=== PATIENT | female | born 1970 | race Caucasian/White ===

== ENCOUNTER 2018-09-29 00:32 | Emergency (ER) | payer OTHER ==
[~2018-09-29] VITALS: Ht 157.5 cm; Wt 49.9 kg
[2018-09-29 00:32] VITALS: BP 127/77
[2018-09-29] MEDS ORDERED: TORADOL IM STA (00:36)
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
[2018-09-29] MEDS ORDERED: TORADOL ONE (01:31)
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
--- NOTE | 2018-09-29 02:50 | NUR ---
Boot Small short boot was applied to right foot
--- NOTE | 2018-09-29 03:34 | NUR ---
[place] Talked to Officer Donta at [facility] about transport of patient due to patient being in custody when EMS arrived for transport. Officer Donta states she was not in custody they just had her detained for questioning to see where patient needs to go. That we will have to call next of kin to see if someone can come and pick patient up. Officer Donta states that patient lives at [address] here in [facility]
--- NOTE | 2018-09-29 03:37 | NUR ---
Next of Kin Left message with Claire, patients next of kin
[2018-09-29 04:37] VITALS: BP 127/77
== END 2018-09-29 03:10 | disposition home or self-care (01) ==
LOC: EDBD 00:32 → ER 00:32
DX: S82.51XA Displaced fracture of medial malleolus of right tibia, initial encounter for closed fracture (principal); S10.93XA Contusion of unspecified part of neck, initial encounter; V89.2XXA Person injured in unspecified motor-vehicle accident, traffic, initial encounter; Y93.89 Activity, other specified; Y92.488 Other paved roadways as the place of occurrence of the external cause; Y99.8 Other external cause status
CPT/HCPCS: 70450; 72125; 72128; 72131; 73610; 96372; 99284; J1885

== ENCOUNTER 2018-10-03 19:34 | Emergency (ER) | payer OTHER ==
[~2018-10-03] VITALS: Ht 167.6 cm; Wt 49.9 kg
[2018-10-03 19:37] VITALS: BP 149/96
--- NOTE | 2018-10-03 20:08 | ER.PDOC ---
General Chief Complaint: Extremities Stated Complaint: FOOT PAIN Time seen by MD: 19:59 Source: patient Exam Limitations: no limitations History of Present Illness Initial Comments 47 year old white female with history of bipolar disorder, schizophrenia, homelessness, off psych medication was initially brought in by EMS because of right ankle pain. She was seen and evaluated two days ago and was discharged on a walking boot. Patient requests admission to the [facility] for decompensating mental health. Denies homicidal nor suicidal ideation. Last meth use was yesterday. Timing/Duration: other (ongoing) Severity: moderate Associated Symptoms: Depressed Prior symptoms/Treatment: Similar symptoms previous Allergies: Coded Allergies: No Known Allergies (Unverified , 09/29/18) Past Medical History Medical History: arrhythmia, hypertension Surgical History: appendectomy LMP (females 10-50): postmenopause Social History Smoking: less than 1 pack/day Alcohol Use: none Drug Use: marijuana, Meth Review of Systems Constitutional: weakness EENTM: no symptoms reported Respiratory: no symptoms reported Cardiovascular: no symptoms reported Gastrointestinal: no symptoms reported Genitourinary: no symptoms reported Musculoskeletal: joint pain Skin: no symptoms reported Psychiatric/Neurological: see HPI Physical Exam General Appearance: No acute distress, Alert EENT: No nystagmus, PERRLA, EOM's intact, NML ENT inspection, Pharynx nml, NML gag reflex, Dry mucosa Neck: Non-Tender, Full Range of Motion, Supple, Normal Inspection Respiratory: chest non-tender, lungs clear, normal breath sounds, no respiratory distress, no accessory muscle use Gastrointestinal: Normal Bowel Sounds, No Organomegaly, No Pulsatile Mass, Non Tender, Soft Extremities: Edema (right ankle), Tenderness Neurological/Psychiatric: Alert, 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, Oriented x 3, Anxious, Depressed Affect Appearance/Memory/Insight: Disheveled Behavior/Eye Contact/Speech: Cooperative, Good Eye Contact, Normal Speech Thoughts/Hallucinations: Normal Thought Pattern, No Apparent Hallucination Skin: Normal Color, Warm/Dry Results/Orders Results/Orders Laboratory Tests Test 10/03/18 20:08 10/03/18 20:23 Urine Collection Type CCMS Urine Color STRAW (YELLOW) Urine Appearance CLEAR (CLEAR) Urine Bilirubin NEGATIVE MG/DL (NEGATIVE) Urine Ketones NEGATIVE (NEGATIVE) Urine Specific [place] 1.020 (1.005-1.035) Urine pH 6 (5.0-6.0) Urine Protein NEGATIVE (NEGATIVE) Urine Urobilinogen NORMAL (NEGATIVE) Urine Nitrate NEGATIVE (NEGATIVE) Urine Leukocyte Esterase NEGATIVE (NEGATIVE) Urine Blood NEGATIVE (NEGATIVE) Urine Glucose NORMAL (NEGATIVE) Urine Opiates, Qualitative NEGATIVE ng/mL (CUT-OFF:300) Urine Methadone, Qualitative NEGATIVE ng/mL (CUT-OFF:300) Urine Amphetamine Qualitative POSITIVE ng/mL (CUTOFF:1000) Urine Barbiturates, Qualitative NEGATIVE ng/mL (CUT-OFF:200) Urine Phencyclidine Screen NEGATIVE ng/mL (CUT-OFF:25) Urine MDMA (Ecstasy), Qualitative POSITIVE ng/mL (CUT-OFF:300) Urine Benzodiazepines Screen NEGATIVE ng/mL (CUT-OFF:200) Urine Cocaine Qualitative POSITIVE ng/mL (CUT-OFF:300) Ur Tetrahydrocannabinol (THC) Scrn NEGATIVE ng/mL (CUT-OFF:50) White Blood Count 4.3 10^3/uL (4.5-11.0) Red Blood Count 4.00 10^6/uL (4.00-5.20) Hemoglobin 12.1 g/dL (12.0-15.0) Hematocrit 37.6 % (36.0-46.0) Mean Corpuscular Volume 94.0 fL (78-100) Mean Corpuscular Hemoglobin 30.3 pg (26-34) Mean Corpuscular Hemoglobin Concent 32.2 g/dL (33-37) Red Cell Distribution Width 14.9 % (11.5-14.5) Platelet Count 222 10^3/uL (150-400) Mean Platelet Volume 10.0 fL (7.8-11.0) Neutrophils (%) (Auto) 46.7 % (41.0-85.0) Lymphocytes (%) (Auto) 45.6 % (24.0-44.0) Monocytes (%) (Auto) 6.1 % (5.0-12.0) Neutrophils # (Auto) 2.0 10^3/uL (1.8-7.7) Lymphocytes # (Auto) 1.9 10^3/uL (1.0-4.8) Monocytes # (Auto) 0.3 10^3/uL (0.3-0.8) Absolute Immature Granulocyte (auto 0 10^3 u/L (0-2) Eosinophils % 0.9 % (0.0-5.0) Basophils % 0.7 % (0.0-0.2) Basophils # 0.0 10^3/uL (0.0-0.1) Eosinophil Count 0.0 10^3/uL (0.0-0.2) Prothrombin Time 10.9 SEC (9.8-11.9) Prothrombin Time INR (Non-Therap) 1.1 Activated Partial Thromboplast Time 23.3 SEC (24.67-30.72) Sodium Level 142 mmol/L (132-145) Potassium Level 2.9 mmol/L (3.6-5.2) Chloride Level 108.0 mmol/L (96-109) Carbon Dioxide Level 23.3 mmol/L (20.0-32) Anion Gap 13.6 Blood Urea Nitrogen 29 mg/dL (7-18) Creatinine 1.08 mg/dL (0.59-1.40) Estimated GFR () 65.2 (>/=60) BUN/Creatinine Ratio 26.0 Glucose Level 96 mg/dL (70-110) Calcium Level 9.5 mg/dL (8.4-10.5) Total Bilirubin 0.2 mg/dL (0.2-1.0) Aspartate Amino Transf (AST/SGOT) 47 U/L (0-35) Alanine Aminotransferase (ALT/SGPT) 41 U/L (12-78) Alkaline Phosphatase 72 U/L (50-136) Total Creatine Kinase 524 U/L (26-192) Troponin I < 0.02 ng/mL (0.00-0.05) Pro-B-Type Natriuretic Peptide 116 pg/mL (0-125) Total Protein 6.9 g/dL (6.4-8.2) Albumin 3.5 g/dL (3.4-5.0) Globulin 3.4 Thyroid Stimulating Hormone (TSH) 0.394 mIU/mL (0.358-3.740) Percent Immature Gran (Cell Imm) 0.00 % (0.00-0.50) Progress Progress Discussed with manager social work. Patient is not a candidate to [facility] admission Departure Time of Disposition: 23:28 Disposition: 01 HOME, SELF-CARE Impression: Primary Impression: Drug abuse, cocaine type Additional Impressions: Drug abuse, amphetamine type Drug abuse, continuous Condition: Stable Referrals: PCP,UNKNOWN (PCP) PRIMARY CARE PROVIDER Comments Follow up with [facility] as out patient [facility]TER prn Discussed results of urine drug screen Duration or Time Spent with Pa: 120 Problem Qualifiers PARAS SANTIAGO MD Oct 03, 2018 20:08
[2018-10-03 20:17] VITALS: BP 145/84
--- NOTE | 2018-10-03 20:19 | PCM.EKG ---
[facility] Test Date: 2018-10-03 Test Time: 20:18:59 Pat Name: ZHANNA ALCARAZ Department: Room: Gender: F Corporate Sales Trainer: ESTRELLA : 1970 Requested By: PARAS SANTIAGO Order Number: [id number] Reading MD: Measurements Intervals [place] Rate: 67 P: 64 WA: 142 QRS: 55 QRSD: 76 T: 73 QT: 412 QTc: 435 Interpretive Statements Normal sinus rhythm Septal infarct, age undetermined Abnormal ECG No previous ECG available for comparison Please click the below link to view image of tracing.
[2018-10-03 20:29] LABS: BASOPHIL % 0.7 % (0.0-0.2); EOSINOPHIL % 0.9 % (0.0-5.0); HEMOGLOBIN 12.1 g/dL (12.0-15.0); LYMPHOCYTES # 1.9 10^3/uL (1.0-4.8); LYMPHOCYTES % 45.6 % (24.0-44.0); MEAN CELL HGB 30.3 pg (26-34); MEAN CELL HGB CONCENTRATION 32.2 g/dL (33-37); MONOCYTES # 0.3 10^3/uL (0.3-0.8); MONOCYTES % 6.1 % (5.0-12.0); NEUTROPHILS % 46.7 % (41.0-85.0); RED CELL DISTRIBUTION WIDTH 14.9 % (11.5-14.5); WHITE BLOOD CELL 4.3 10^3/uL (4.5-11.0)
[2018-10-03 20:54] LABS: ALANINE AMINOTRANSFERASE(ML) 41 U/L (12-78); ALKALINE PHOSPHATASE 72 U/L (50-136); ASPARTATE AMINO TRANSFERASE 47 U/L (0-35); CALCIUM 9.5 mg/dL (8.4-10.5); CARBON DIOXIDE 23.3 mmol/L (20.0-32); GLUCOSE 96 mg/dL (70-110)
--- NOTE | 2018-10-03 20:54 | DIREP ---
PROCEDURE:CHEST 2 VIEWS COMPARISON:None. INDICATIONS:med clearance FINDINGS: LUNGS/PLEURA:No significant pulmonary parenchymal abnormalities. No effusions. VASCULATURE:Normal. Unremarkable pulmonary vasculature. CARDIAC:Normal. No cardiac silhouette abnormality or cardiomegaly. MEDIASTINUM:Normal. No visible mass or adenopathy. BONES:Normal. No fracture or visible bony lesion. OTHER:Negative. CONCLUSION:Normal chest examination. Dictated by: Shamar Peters M.D. on 10/03/2018 at 08:52 PM
[2018-10-03 21:13] VITALS: BP 142/86
--- NOTE | 2018-10-03 21:16 | NUR ---
UA INSTRUCTED PATIENT THAT WE WOULD NEED TO OBTAIN A UA AND SHE SAID THAT SHE WOULD BE UNABLE TO URINATE AT THIS TIME.
[2018-10-03 22:17] VITALS: BP 133/88
--- NOTE | 2018-10-03 22:40 | NUR ---
UA ASSITED TO BATHROOM FOR URINE SAMPLE. URINE SAMPLE TAKEN TO LAB.
[2018-10-03 22:41] LABS: BILIRUBIN,URINE NEGATIVE (NEGATIVE); UROBILINOGEN,URINE NORMAL (NEGATIVE)
[2018-10-03 22:47] VITALS: BP 116/64
[2018-10-03 22:47] LABS: APPEARANCE,URINE CLEAR (CLEAR); UA COLOR STRAW (YELLOW)
--- NOTE | 2018-10-03 23:11 | NUR ---
[facility] CALLED TO NOTIFY OF REPORTS OF DEPRESSION AND THAT SHE FEELS THAT SHE NEEDS TO BE IN THE [facility].
--- NOTE | 2018-10-03 23:24 | NUR ---
[facility] RETURN CALL FROM DRAGGER OUT Candido TORRES TO DISCUSS PATIENTS DEPRESSION AND VOICED THAT SHE WOULD NOT BE ABLE TO EVALUATE PATIENT ANY FURTHER DUE TO PATIENT NOT HAVING ANY SUICIDAL OR HOMICIDAL IDEATIONS, PLAN, OR ATTEMPTS AT THIS TIME WELL HAVING MULTIPLE DRUGS IN HER SYSTEM. THEY WILL CALL [facility] HOTLINE AND DOWN GRADE SITUATION.
--- NOTE | 2018-10-03 23:34 | NUR ---
CALL CALLED [facility]O PER PATIENT REQUEST TO ASK HIM TO GIVE HER A RIDE SINCE SHE IS BEING DISCHARGED FROM THE HOSPITAL. HE SAID THAT HE GAVE HER A RIDE EARLIER TODAY AND DOES NOT KNOW THE PATIENT WELL AND WILL NOT BE ABLE TO GIVE THE PATIENT A RIDE.
--- NOTE | 2018-10-03 23:36 | NUR ---
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
--- NOTE | 2018-10-03 23:41 | NUR ---
CALL CALLED MAK PER PATIENT REQUEST FOR RIDE SINCE SHE IS BEING DISCHARGED NOT ANSWER AND NOT ABLE TO LEAVE VOICEMAIL.
--- NOTE | 2018-10-03 23:50 | NUR ---
CALL CALLED RODRICK PER PATIENT REQUEST AGAIN NO ANSWER AND LEFT MESSAGE
--- NOTE | 2018-10-03 23:53 | NUR ---
CALL RECEIVED RETURN CALL FROM MAK AND INFORMED THAT PATIENT WAS NEEDING TO BE PICKED UP FROM THE ER SHE WAS BEING DISCHARGED AND SHE REQUESTED THAT I CALL HER AND SHE SAID THAT SHE WOULD SEE IF SHE COULD FIND SOMEONE TO PICK HER UP.
[2018-10-04] MEDS ORDERED: KLOR-CON 10 PO ONE (00:16)
[2018-10-04] MEDS ORDERED: KLOR-CON 10 PO SCH (00:30)
[2018-10-04 00:35] VITALS: BP 116/64
== END 2018-10-04 00:15 | disposition home or self-care (01) ==
LOC: EDBD 19:34 → ER 19:34
DX: F14.10 Cocaine abuse, uncomplicated (principal); F15.10 Other stimulant abuse, uncomplicated; F17.210 Nicotine dependence, cigarettes, uncomplicated; I10 Essential (primary) hypertension; Z90.49 Acquired absence of other specified parts of digestive tract; I49.9 Cardiac arrhythmia, unspecified
CPT/HCPCS: 36415; 71046; 80053; 80307; 81002; 82550; 83880; 84443; 84484; 85025; 85610; 85730; 93005; 99284; J3480